=== PATIENT | female | born 1960 | race Two or more races ===

== ENCOUNTER 2019-10-14 18:57 | Emergency (ER) | payer MEDICAID ==
[~2019-10-14] VITALS: Ht 162.6 cm; Wt 90.7 kg
--- NOTE | 2019-10-14 19:17 | NUR ---
Patient arrive at the ER with chief complaint of flank pain left side x4 months and cough x1 yr. Patient AOX4. No cardiovascular concern. No /GI concern.
--- NOTE | 2019-10-14 19:21 | NUR ---
Dr. Mcleod on bedside for MSE.
[2019-10-14 19:50] LABS: *BILIRUBIN,URIN NEGATIVE (NEGATIVE); *BLOOD, URINE NEGATIVE (NEGATIVE); *CLARITY,URINE SLIGHTLY CLOUDY (CLEAR); *COLOR,URINE LIGHT YELLOW (YELLOW); *KETONES,URINE NEGATIVE (NEGATIVE); *UROBILINOGEN,URINE 0.2 E.U./dl (NORMAL); LEUKOCYTE ESTERASE ,URINE 1+ (NEGATIVE); NITRITE, URINE NEGATIVE (NEGATIVE); UGLUCOSE NEGATIVE (NEGATIVE)
[2019-10-14 19:51] LABS: BASOPHILS % (AUTO) 0.5 % (0.0-2.0); EOSINOPHILS # (AUTO) 0.1 K/uL (0.0-0.7); EOSINOPHILS % (AUTO) 1.7 % (0.0-7.0); HEMATOCRIT 39.1 % (31.2-41.9); HEMOGLOBIN 13.4 g/dL (10.9-14.3); LYMPHOCYTES # (AUTO) 1.9 K/uL (20.0-40.0); LYMPHOCYTES % (AUTO) 26.6 % (20.5-51.5); MEAN CORPUSCULAR HGB CONC 34 g/dL (32.3-35.6); MEAN CORPUSCULAR VOLUME 90.9 fL (75.5-95.3); MONOCYTES # (AUTO) 0.5 K/uL (2.0-10.0); MONOCYTES % (AUTO) 7.3 % (0.0-11.0); NEUTROPHILS # (AUTO) 4.5 K/uL (1.8-8.9); NEUTROPHILS % (AUTO) 63.9 % (38.5-71.5); PLATELET COUNT (AUTO) 221 K/uL (179-408)
[2019-10-14 20:03] LABS: CREATININE 0.8 mg/dL (0.6-1.3); POTASSIUM 3.9 mmol/L (3.5-5.1)
[2019-10-14 20:08] LABS: BILIRUBIN,DIRECT 0.1 mg/dL (0.0-0.2); BILIRUBIN,TOTAL 0.4 mg/dL (0.2-1.0); TOTAL PROTEIN, SERUM 8.9 g/dL (6.4-8.2)
[2019-10-14 20:12] LABS: BACTERIA,URINE MODERATE /HPF (NONE SEEN); SQUAMOUS EPITHELIAL CELL,UR MANY /HPF (NONE SEEN); WBC,URINE 20-50 /HPF (0-3)
--- NOTE | 2019-10-14 20:45 | NUR ---
Dr. Mcleod at bedside.
--- NOTE | 2019-10-14 21:10 | NUR ---
Patient discharged to home in stable conditon. Written and verbal after care instructions given. Patient verbalizes understanding of instructions. Pt ambulated out of the ER with steady gait. All belongings with pt.
[2019-10-14 21:19] VITALS: BP 135/80
== END 2019-10-14 21:10 | disposition home or self-care (01) ==
LOC: ER 19:02
DX: N20.0 Calculus of kidney (principal); R05 Cough; I25.2 Old myocardial infarction; E11.9 Type 2 diabetes mellitus without complications; Z86.73 Personal history of transient ischemic attack (TIA), and cerebral infarction without residual deficits
CPT/HCPCS: 36415; 71046; 83690; 85025; 85730; 87077; 87086; A4663

== ENCOUNTER 2019-12-08 20:16 | Emergency (ER) | payer MEDICAID ==
[~2019-12-08] VITALS: Ht 162.6 cm; Wt 93.0 kg
[2019-12-08 21:30] LABS: BASOPHILS % (AUTO) 0.7 % (0.0-2.0); EOSINOPHILS # (AUTO) 0.2 K/uL (0.0-0.7); EOSINOPHILS % (AUTO) 2.6 % (0.0-7.0); HEMATOCRIT 35.4 % (31.2-41.9); HEMOGLOBIN 12.3 g/dL (10.9-14.3); LYMPHOCYTES # (AUTO) 1.7 K/uL (20.0-40.0); MEAN CORPUSCULAR HEMOGLOBIN 30.5 uug (24.7-32.8); MEAN CORPUSCULAR HGB CONC 35 g/dL (32.3-35.6); MEAN CORPUSCULAR VOLUME 87.5 fL (75.5-95.3); MONOCYTES # (AUTO) 0.5 K/uL (2.0-10.0); MONOCYTES % (AUTO) 7.6 % (0.0-11.0); NEUTROPHILS # (AUTO) 4.4 K/uL (1.8-8.9); NEUTROPHILS % (AUTO) 64.1 % (38.5-71.5); PLATELET COUNT (AUTO) 209 K/uL (179-408); RED BLOOD CELL COUNT(AUTO) 4.04 MIL/uL (3.63-4.92); WHITE BLOOD COUNT (AUTO) 6.8 K/uL (3.8-11.8)
[2019-12-08 21:34] LABS: CREATININE 0.9 mg/dL (0.6-1.3); POTASSIUM 4.2 mmol/L (3.5-5.1)
--- NOTE | 2019-12-08 21:53 | NUR ---
ER MD at bedside for patient evaluation. Patient in bed, no acute distress noted. Flu swab complete and sent to lab.
[2019-12-08] MEDS ORDERED: OSELTAMIVIR PHOSPHATE 75 MG CAPSULE ONE (21:57)
[2019-12-08] MEDS ORDERED: OSELTAMIVIR PHOSPHATE 75 MG CAPSULE PO ONE (22:00)
[2019-12-08 22:52] VITALS: BP 121/65
--- NOTE | 2019-12-08 22:52 | NUR ---
Patient discharged to home in stable conditon. Written and verbal after care instructions given. Patient verbalizes understanding of instructions. Ambulated from ER with stable gait. All belongings with patient. VSS
== END 2019-12-08 22:54 | disposition home or self-care (01) ==
LOC: ER 20:16
DX: B34.9 Viral infection, unspecified (principal); E11.65 Type 2 diabetes mellitus with hyperglycemia; I25.2 Old myocardial infarction
CPT/HCPCS: 36415; 71045; 85025; 87400; A4663

== ENCOUNTER 2022-04-10 18:00 | Emergency (ER) | payer BC, MEDICAID ==
[~2022-04-10] VITALS: Ht 162.6 cm; Wt 90.7 kg
--- NOTE | 2022-04-10 18:19 | NUR ---
patient ambulated to bed 4A, presents with pain left lower back radiating to abd
--- NOTE | 2022-04-10 19:00 | NUR ---
patient's daughter at bedside
[2022-04-10 19:09] LABS: HEMATOCRIT 32.7 % (31.2-41.9); MEAN CORPUSCULAR HEMOGLOBIN 29.3 uug (24.7-32.8); MEAN CORPUSCULAR VOLUME 85.1 fL (75.5-95.3); PLATELET COUNT (AUTO) 210 K/uL (179-408)
[2022-04-10 19:22] LABS: CREATININE 0.8 mg/dL (0.6-1.3); POTASSIUM 4.3 mmol/L (3.5-5.1)
[2022-04-10 19:28] LABS: BILIRUBIN,DIRECT 0.1 mg/dL (0.0-0.2); BILIRUBIN,TOTAL 0.3 mg/dL (0.2-1.0); TOTAL PROTEIN, SERUM 8.2 g/dL (6.4-8.2)
[2022-04-10] MEDS ORDERED: MORPHINE SULFATE 4 MG/1 ML DISP.SYRIN IM ONE (19:30)
[2022-04-10] MEDS ORDERED: ONDANSETRON ODT 4 MG TAB.RAPDIS SL ONE (19:30)
[2022-04-10] MEDS ORDERED: MORPHINE SULFATE 4 MG/1 ML DISP.SYRIN ONE (19:34)
[2022-04-10] MEDS ORDERED: ONDANSETRON ODT 4 MG TAB.RAPDIS ONE (19:34)
[2022-04-10 20:25] LABS: *BILIRUBIN,URIN NEGATIVE (NEGATIVE); *BLOOD, URINE NEGATIVE (NEGATIVE); *CLARITY,URINE CLEAR (CLEAR); *COLOR,URINE YELLOW (YELLOW); *KETONES,URINE NEGATIVE (NEGATIVE); *UROBILINOGEN,URINE 0.2 E.U./dl (NORMAL); LEUKOCYTE ESTERASE ,URINE NEGATIVE (NEGATIVE); NITRITE, URINE NEGATIVE (NEGATIVE); UGLUCOSE NEGATIVE (NEGATIVE)
[2022-04-10] MEDS ORDERED: HYDR-4209 PO (20:54)
--- NOTE | 2022-04-10 21:02 | NUR ---
Patient discharged to home in stable condition. Written and verbal after care instructions given. Patient verbalizes understanding of instructions. Stressed follow up or return to ER for worsening s/s. Patient is A/Ox4, not in distress. patient is accompanied by her daughter
[2022-04-10 21:03] VITALS: BP 128/69
== END 2022-04-10 21:02 | disposition home or self-care (01) ==
LOC: ER 18:06
DX: R10.12 Left upper quadrant pain (principal); K76.0 Fatty (change of) liver, not elsewhere classified; E78.5 Hyperlipidemia, unspecified; Z85.89 Personal history of malignant neoplasm of other organs and systems; I25.2 Old myocardial infarction; I10 Essential (primary) hypertension; E11.9 Type 2 diabetes mellitus without complications; Z86.718 Personal history of other venous thrombosis and embolism
CPT/HCPCS: 36415; 74176; 80048; 80076; 81003; 83690; 84484; 85025; 93005; 96372; 99285; J2270; A4663; Q0162

== ENCOUNTER 2024-08-14 15:44 | Emergency (ER) | payer MEDICARE, OTHER ==
[~2024-08-14] VITALS: Ht 154.9 cm; Wt 71.7 kg
[~2024-08-14 15:44] MED LIST: HYDR-4209 PO
[2024-08-14 16:00] VITALS: O2SAT 97
[2024-08-14] MEDS ORDERED: diphenhydrAMINE 50 MG/1 ML VIAL ONE (16:31)
[2024-08-14] MEDS ORDERED: HYDROMORPHONE 1 MG/1 ML DISP.SYRIN ONE (16:32)
[2024-08-14] MEDS: HYDROMORPHONE 1 MG/1 ML DISP.SYRIN IM ONE (16:47)
[2024-08-14] MEDS: diphenhydrAMINE 50 MG/1 ML VIAL IM ONE (16:47)
[2024-08-14 17:11] LABS: BASOPHILS % (AUTO) 0.4 % (0.0-2.0); EOSINOPHILS # (AUTO) 0.2 K/uL (0.0-0.7); EOSINOPHILS % (AUTO) 3.4 % (0.0-7.0); HEMATOCRIT 35.6 % (31.2-41.9); HEMOGLOBIN 12.3 g/dL (10.9-14.3); LYMPHOCYTES # (AUTO) 1.1 K/uL (0.8-4.8); LYMPHOCYTES % (AUTO) 20.2 % (20.5-51.5); MEAN CORPUSCULAR HEMOGLOBIN 31.5 uug (24.7-32.8); MEAN CORPUSCULAR HGB CONC 35 g/dL (32.3-35.6); MEAN CORPUSCULAR VOLUME 91.1 fL (75.5-95.3); MONOCYTES # (AUTO) 0.6 K/uL (0.1-1.30); MONOCYTES % (AUTO) 10.1 % (0.0-11.0); NEUTROPHILS # (AUTO) 3.7 K/uL (1.8-8.9); NEUTROPHILS % (AUTO) 65.9 % (38.5-71.5); PLATELET COUNT (AUTO) 198 K/uL (179-408); RED BLOOD CELL COUNT(AUTO) 3.91 MIL/uL (3.63-4.92); RED CELL DISTRIBUTION WIDTH 13.5 % (12.3-17.7); WHITE BLOOD COUNT (AUTO) 5.6 K/uL (3.8-11.8)
[2024-08-14 17:12] LABS: CALCIUM 9.7 mg/dL (8.5-10.1); CARBON DIOXIDE 27 mmol/L (21-32); CHLORIDE 101 mmol/L (98-107); CREATININE 0.8 mg/dL (0.6-1.3); GLUCOSE 150 mg/dL (74-106); POTASSIUM 4.2 mmol/L (3.5-5.1); SODIUM SERUM 139 mmol/L (136-145); UREA NITROGEN, BLOOD 10 mg/dL (7-18)
[2024-08-14 17:23] LABS: ALANINE AMINOTRANSFERASE 38 U/L (14-59); ALBUMIN 4.2 g/dL (3.4-5.0); ALKALINE PHOSPHATASE 55 U/L (50-136); ASPARTATE AMINOTRANSFERASE 27 U/L (15-37); BILIRUBIN,DIRECT 0.1 mg/dL (0.0-0.2); BILIRUBIN,TOTAL 0.6 mg/dL (0.2-1.0); NT-PRO BNP 45 pg/mL (0-125)
[2024-08-14] MEDS ORDERED: OXYC-128 PO (18:10)
[2024-08-14] MEDS ORDERED: CYCL5TAB PO (18:10)
[2024-08-14] MEDS ORDERED: IBUP-1957 PO (18:10)
== END 2024-08-14 18:20 | disposition home or self-care (01) ==
LOC: ER 15:45
DX: M54.42 Lumbago with sciatica, left side (principal); E11.9 Type 2 diabetes mellitus without complications; Z79.1 Long term (current) use of non-steroidal anti-inflammatories (NSAID); Z79.891 Long term (current) use of opiate analgesic; Z79.899 Other long term (current) drug therapy; Z98.890 Other specified postprocedural states
CPT/HCPCS: 99285; 72131; 80076; 80048; 83880; 85025; 85379; 85651; 85730; 84484; 36415; 96372 ×2; J1200; J1170; A4606; A4663

== ENCOUNTER 2024-09-07 18:47 | Emergency (ER) | payer MEDICARE, OTHER ==
[~2024-09-07] VITALS: Ht 160 cm; Wt 72.6 kg
[~2024-09-07 18:47] MED LIST changes: +CYCL5TAB PO; +IBUP-1957 PO; +OXYC-128 PO
[2024-09-07] MEDS ORDERED: LISI20TA30 PO (19:03)
[2024-09-07] MEDS ORDERED: PANT40TA49 PO (19:03)
[2024-09-07] MEDS ORDERED: METO50TA16 PO (19:03)
[2024-09-07] MEDS ORDERED: LEVO88TA5 PO (19:03)
[2024-09-07] MEDS ORDERED: FERR325T24 PO (19:03)
[2024-09-07] MEDS ORDERED: SITA1TAB6 PO (19:03)
[2024-09-07] MEDS ORDERED: ATOR40TA (19:03)
[2024-09-07] MEDS ORDERED: MONT10TA33 PO (19:03)
[2024-09-07] MEDS ORDERED: ALLO300T2 PO (19:03)
[2024-09-07] MEDS ORDERED: GABA-532 PO (19:03)
[2024-09-07] MEDS ORDERED: MELO-107 PO (19:03)
[2024-09-07 19:14] LABS: BASOPHILS % (AUTO) 0.5 % (0.0-2.0); EOSINOPHILS # (AUTO) 0.1 K/uL (0.0-0.7); EOSINOPHILS % (AUTO) 1.4 % (0.0-7.0); HEMATOCRIT 34.5 % (31.2-41.9); HEMOGLOBIN 12.1 g/dL (10.9-14.3); LYMPHOCYTES # (AUTO) 1.7 K/uL (0.8-4.8); LYMPHOCYTES % (AUTO) 24.8 % (20.5-51.5); MEAN CORPUSCULAR HGB CONC 35 g/dL (32.3-35.6); MEAN CORPUSCULAR VOLUME 91.5 fL (75.5-95.3); MONOCYTES # (AUTO) 0.5 K/uL (0.1-1.30); MONOCYTES % (AUTO) 7.5 % (0.0-11.0); NEUTROPHILS # (AUTO) 4.5 K/uL (1.8-8.9); NEUTROPHILS % (AUTO) 65.8 % (38.5-71.5); PLATELET COUNT (AUTO) 200 K/uL (179-408); RED BLOOD CELL COUNT(AUTO) 3.77 MIL/uL (3.63-4.92); RED CELL DISTRIBUTION WIDTH 13.3 % (12.3-17.7); WHITE BLOOD COUNT (AUTO) 6.8 K/uL (3.8-11.8)
[2024-09-07 19:15] LABS: DIFFERENTIAL COMMENT 1
[2024-09-07 19:24] LABS: CALCIUM 9.5 mg/dL (8.5-10.1); CARBON DIOXIDE 25 mmol/L (21-32); CHLORIDE 97 mmol/L (98-107); CREATININE 0.9 mg/dL (0.6-1.3); GLUCOSE 176 mg/dL (74-106); POTASSIUM 4.4 mmol/L (3.5-5.1); SODIUM SERUM 132 mmol/L (136-145); UREA NITROGEN, BLOOD 14 mg/dL (7-18)
[2024-09-07 19:37] LABS: ALANINE AMINOTRANSFERASE 36 U/L (14-59); ALBUMIN 4.4 g/dL (3.4-5.0); ALKALINE PHOSPHATASE 64 U/L (50-136); ASPARTATE AMINOTRANSFERASE 24 U/L (15-37); BILIRUBIN,TOTAL 0.5 mg/dL (0.2-1.0); LIPASE 91 U/L (16-77); NT-PRO BNP 84 pg/mL (0-125); TOTAL PROTEIN, SERUM 8.3 g/dL (6.4-8.2)
[2024-09-07 19:41] LABS: ACETONE, SERUM NEGATIVE (NEGATIVE)
[2024-09-07 20:38] LABS: *BILIRUBIN,URIN NEGATIVE (NEGATIVE); *BLOOD, URINE NEGATIVE (NEGATIVE); *CLARITY,URINE CLEAR (CLEAR); *COLOR,URINE YELLOW (YELLOW); *KETONES,URINE NEGATIVE (NEGATIVE); *PROTEIN,URINE NEGATIVE (NEGATIVE); *UROBILINOGEN,URINE 0.2 E.U./dl (NORMAL); LEUKOCYTE ESTERASE ,URINE 1+ (NEGATIVE); NITRITE, URINE NEGATIVE (NEGATIVE); UGLUCOSE NEGATIVE (NEGATIVE)
[2024-09-07 20:57] LABS: RBC,URINE 0-3 /HPF (0-3); WBC,URINE 0-3 /HPF (0-3)
[2024-09-07 21:00] VITALS: BP 133/80; TEMP 98; O2SAT 98
== END 2024-09-07 21:00 | disposition home or self-care (01) ==
LOC: ER 18:48
DX: R51.9 Headache, unspecified (principal); E11.9 Type 2 diabetes mellitus without complications; I11.9 Hypertensive heart disease without heart failure; I25.2 Old myocardial infarction; Z79.1 Long term (current) use of non-steroidal anti-inflammatories (NSAID); Z79.84 Long term (current) use of oral hypoglycemic drugs; Z79.890 Hormone replacement therapy; Z86.718 Personal history of other venous thrombosis and embolism; Z79.899 Other long term (current) drug therapy
CPT/HCPCS: 36415; 70450; 71045; 83690; 84484; 85025; A4606; A4663

== ENCOUNTER 2024-09-22 22:57 | Inpatient (IN) | payer MEDICAID, MEDICARE ==
[~2024-09-22] VITALS: Ht 160 cm; Wt 72.6 kg
[~2024-09-22 22:57] MED LIST changes: +ALLO300T2 PO; +ATOR40TA; -CYCL5TAB PO; +FERR325T24 PO; +GABA-532 PO; -HYDR-4209 PO; -IBUP-1957 PO; +LEVO88TA5 PO; +LISI20TA30 PO; +MELO-107 PO; +METO50TA16 PO; +MONT10TA33 PO; -OXYC-128 PO; +PANT40TA49 PO; +SITA1TAB6 PO
[2024-09-22] MEDS ORDERED: ACETAMINOPHEN 500 MG TABLET ONE (23:35)
[2024-09-22] MEDS ORDERED: ONDANSETRON 4 MG/2 ML VIAL ONE (23:36)
[2024-09-22] MEDS: ONDANSETRON 4 MG/2 ML VIAL IV ONE (23:57)
[2024-09-22] MEDS: IV NORMAL SALINE 500 ML BAG IV ONE (23:57)
[2024-09-22] MEDS: ACETAMINOPHEN 500 MG TABLET PO ONE (23:57)
[2024-09-22] MEDS ORDERED: LORAZEPAM 2 MG/1 ML VIAL ONE (23:59)
[2024-09-23] MEDS: LORAZEPAM 2 MG/1 ML VIAL IV ONE (00:03)
[2024-09-23 00:11] LABS: CARBON DIOXIDE 27 mmol/L (21-32); CHLORIDE 99 mmol/L (98-107); CREATININE 1.2 mg/dL (0.6-1.3); GLUCOSE 151 mg/dL (74-106); POTASSIUM 4.5 mmol/L (3.5-5.1); SODIUM SERUM 137 mmol/L (136-145); UREA NITROGEN, BLOOD 18 mg/dL (7-18)
[2024-09-23 00:15] LABS: THYROID STIMULATING HORMONE 0.253 mIU/mL (0.358-3.740)
[2024-09-23 00:16] LABS: ALBUMIN 4.3 g/dL (3.4-5.0); BILIRUBIN,DIRECT 0.1 mg/dL (0.0-0.2); BILIRUBIN,TOTAL 0.5 mg/dL (0.2-1.0); MAGNESIUM 1.9 mg/dL (1.8-2.4); TOTAL PROTEIN, SERUM 8.2 g/dL (6.4-8.2)
[2024-09-23 00:33] LABS: BASOPHILS % (AUTO) 0.3 % (0.0-2.0); EOSINOPHILS # (AUTO) 0.1 K/uL (0.0-0.7); EOSINOPHILS % (AUTO) 1.6 % (0.0-7.0); HEMATOCRIT 33.1 % (31.2-41.9); HEMOGLOBIN 11.7 g/dL (10.9-14.3); LYMPHOCYTES # (AUTO) 1.4 K/uL (0.8-4.8); LYMPHOCYTES % (AUTO) 19.5 % (20.5-51.5); MEAN CORPUSCULAR HGB CONC 35 g/dL (32.3-35.6); MEAN CORPUSCULAR VOLUME 90.3 fL (75.5-95.3); MONOCYTES # (AUTO) 0.6 K/uL (0.1-1.30); MONOCYTES % (AUTO) 8.9 % (0.0-11.0); NEUTROPHILS # (AUTO) 5.1 K/uL (1.8-8.9); NEUTROPHILS % (AUTO) 69.7 % (38.5-71.5); PLATELET COUNT (AUTO) 206 K/uL (179-408); RED BLOOD CELL COUNT(AUTO) 3.67 MIL/uL (3.63-4.92); RED CELL DISTRIBUTION WIDTH 13.3 % (12.3-17.7); WHITE BLOOD COUNT (AUTO) 7.3 K/uL (3.8-11.8)
[2024-09-23] MEDS ORDERED: ONDA4TAB11 PO (01:26)
[2024-09-23] MEDS ORDERED: CALC500T52 PO (01:26)
[2024-09-23] MEDS ORDERED: ALPR0.5T8 PO (01:26)
[2024-09-23] MEDS ORDERED: GLYB5TAB7 PO (01:26)
[2024-09-23] MEDS ORDERED: FAMO20TA8 PO (01:26)
[2024-09-23] MEDS ORDERED: BACL20TA PO (01:26)
[2024-09-23] MEDS ORDERED: HYDR200T81 PO (01:26)
[2024-09-23] MEDS ORDERED: ASPI81TA31 PO (01:26)
[2024-09-23] MEDS ORDERED: GEMF600T90 PO (01:26)
[2024-09-23] MEDS ORDERED: LIPA1CAP15 PO (01:26)
[2024-09-23] MEDS ORDERED: ATOR40TA PO (01:27)
[2024-09-23] MEDS: RIVAROXABAN 15 MG TABLET PO STA (02:20)
[2024-09-23] MEDS ORDERED: MAGNESIUM HYDROXIDE 30 ML LIQUID UDC PO PRN (02:45)
[2024-09-23] MEDS ORDERED: REMEDY ESSENTIAL ZINC PASTE 113 GM TP PRN (02:45)
[2024-09-23] MEDS ORDERED: ONDANSETRON 4 MG/2 ML VIAL IV PRN (02:45)
[2024-09-23] MEDS ORDERED: DEXTROSE 50% 50 ML DISP.SYRIN IV PRN (02:45)
[2024-09-23] MEDS ORDERED: BACLOFEN 20 MG TABLET PO PRN (02:45)
[2024-09-23] MEDS ORDERED: ALPRAZOLAM 0.5 MG TABLET PO PRN (02:45)
[2024-09-23 03:11] LABS: *BILIRUBIN,URIN NEGATIVE (NEGATIVE); *BLOOD, URINE NEGATIVE (NEGATIVE); *CLARITY,URINE CLEAR (CLEAR); *COLOR,URINE YELLOW (YELLOW); *KETONES,URINE NEGATIVE (NEGATIVE); *PROTEIN,URINE NEGATIVE (NEGATIVE); *UROBILINOGEN,URINE 0.2 E.U./dl (NORMAL); LEUKOCYTE ESTERASE ,URINE NEGATIVE (NEGATIVE); NITRITE, URINE NEGATIVE (NEGATIVE); PH,URINE 5.5 (5.0-8.0); UGLUCOSE NEGATIVE (NEGATIVE)
[2024-09-23 07:16] LABS: BASOPHILS % (AUTO) 0.4 % (0.0-2.0); EOSINOPHILS # (AUTO) 0.1 K/uL (0.0-0.7); EOSINOPHILS % (AUTO) 2.4 % (0.0-7.0); HEMATOCRIT 31.5 % (31.2-41.9); HEMOGLOBIN 11.5 g/dL (10.9-14.3); LYMPHOCYTES # (AUTO) 1.5 K/uL (0.8-4.8); LYMPHOCYTES % (AUTO) 25.6 % (20.5-51.5); MEAN CORPUSCULAR HGB CONC 36 g/dL (32.3-35.6); MEAN CORPUSCULAR VOLUME 90.6 fL (75.5-95.3); MONOCYTES # (AUTO) 0.5 K/uL (0.1-1.30); MONOCYTES % (AUTO) 8.9 % (0.0-11.0); NEUTROPHILS # (AUTO) 3.6 K/uL (1.8-8.9); NEUTROPHILS % (AUTO) 62.7 % (38.5-71.5); PLATELET COUNT (AUTO) 196 K/uL (179-408); RED BLOOD CELL COUNT(AUTO) 3.48 MIL/uL (3.63-4.92); RED CELL DISTRIBUTION WIDTH 13.1 % (12.3-17.7); WHITE BLOOD COUNT (AUTO) 5.7 K/uL (3.8-11.8)
[2024-09-23 07:25] LABS: CALCIUM 9.8 mg/dL (8.5-10.1); CREATININE 0.9 mg/dL (0.6-1.3); POTASSIUM 4.2 mmol/L (3.5-5.1)
[2024-09-23 07:56] LABS: MAGNESIUM 1.9 mg/dL (1.8-2.4); PHOSPHOROUS 4.7 mg/dL (2.5-4.9)
[2024-09-23 07:58] LABS: DIFFERENTIAL COMMENT 1
[2024-09-23] MEDS ORDERED: IV NORMAL SALINE 250 ML IV ONE (09:32)
[2024-09-23] MEDS ORDERED: SWABABLE VALVE TRANSFER SET EA MC ONE (09:32)
[2024-09-23] MEDS ORDERED: IOHEXOL 350 100 ML INFUS..BTL ONE (09:32)
[2024-09-23 09:48] LABS: THYROID STIMULATING HORMONE 0.255 mIU/mL (0.358-3.740)
[2024-09-23] MEDS: LEVOTHYROXINE SODIUM 88 MCG TABLET PO SCH (10:09)
[2024-09-23] MEDS: PANTOPRAZOLE SODIUM 40 MG VIAL IV SCH (10:09)
[2024-09-23] MEDS: GABAPENTIN 100 MG CAPSULE PO SCH (10:09)
[2024-09-23] MEDS: METOPROLOL TARTRATE 50 MG TABLET PO SCH (10:15)
[2024-09-23] MEDS: LISINOPRIL 20 MG TABLET PO SCH (10:16)
[2024-09-23] MEDS: CALCIUM CARBONATE 500 MG TABLET PO SCH (10:18)
[2024-09-23] MEDS: BLOOD SUGAR DIAGNOSTIC 1 EACH STRIP VI SCH (10:24)
[2024-09-23] MEDS: HYDROXYCHLOROQUINE SULFATE 200 MG TABLET PO SCH (10:28)
[2024-09-23] MEDS ORDERED: GEMFIBROZIL 600 MG TABLET PO SCH (11:00)
[2024-09-23] MEDS: INSULIN REGULAR, HUMAN 1000 UNIT/10 ML VIAL SQ PRN (11:31)
[2024-09-23] MEDS: FERROUS SULFATE 325 MG TABEC PO SCH (11:31)
[2024-09-23] MEDS: [UNRECOGNIZED DRUG - REMARK] PO SCH (12:50)
[2024-09-23 15:22] VITALS: BP 135/67; TEMP 97.7; O2SAT 95
[2024-09-23] MEDS: GEMFIBROZIL 600 MG TABLET PO SCH (17:09)
[2024-09-23] MEDS: MONTELUKAST SODIUM 10 MG TABLET PO SCH (18:00)
[2024-09-23] MEDS: ACETAMINOPHEN 325 MG TABLET PO PRN (20:43)
[2024-09-23 22:00] VITALS: BP 110/65; TEMP 98.2
[2024-09-24] MEDS: LEVOTHYROXINE SODIUM 75 MCG TABLET PO SCH (06:13)
[2024-09-24 06:18] VITALS: BP 134/66; TEMP 97.8
[2024-09-24 06:51] LABS: BASOPHILS % (AUTO) 0.3 % (0.0-2.0); EOSINOPHILS # (AUTO) 0.1 K/uL (0.0-0.7); EOSINOPHILS % (AUTO) 2.7 % (0.0-7.0); HEMATOCRIT 31.2 % (31.2-41.9); HEMOGLOBIN 11.1 g/dL (10.9-14.3); LYMPHOCYTES # (AUTO) 1.4 K/uL (0.8-4.8); LYMPHOCYTES % (AUTO) 26.8 % (20.5-51.5); MEAN CORPUSCULAR HEMOGLOBIN 32.8 uug (24.7-32.8); MEAN CORPUSCULAR HGB CONC 36 g/dL (32.3-35.6); MEAN CORPUSCULAR VOLUME 92.2 fL (75.5-95.3); MONOCYTES # (AUTO) 0.5 K/uL (0.1-1.30); MONOCYTES % (AUTO) 9.7 % (0.0-11.0); NEUTROPHILS # (AUTO) 3.1 K/uL (1.8-8.9); NEUTROPHILS % (AUTO) 60.5 % (38.5-71.5); PLATELET COUNT (AUTO) 198 K/uL (179-408); RED BLOOD CELL COUNT(AUTO) 3.38 MIL/uL (3.63-4.92); RED CELL DISTRIBUTION WIDTH 13.3 % (12.3-17.7); WHITE BLOOD COUNT (AUTO) 5.1 K/uL (3.8-11.8)
[2024-09-24 07:04] LABS: CALCIUM 9.9 mg/dL (8.5-10.1); CREATININE 0.9 mg/dL (0.6-1.3); POTASSIUM 4.5 mmol/L (3.5-5.1)
[2024-09-24 07:17] LABS: DIFFERENTIAL COMMENT 1
[2024-09-24 11:30] VITALS: BP 116/52; TEMP 97.6; O2SAT 96
[2024-09-24] MEDS ORDERED: LEVO75TA7 PO (12:10)
[2024-09-25] MEDS ORDERED: PANTOPRAZOLE SODIUM 40 MG TABLET.DR PO SCH (07:00)
== END 2024-09-24 13:40 | disposition home health service (06) | DRG 723 ==
LOC: ER 22:58 → TELE3 09-23 08:16 → MEDSURG3 09-24 10:00
PROVIDERS: ATTEND Internal Medicine
DX: B34.9 Viral infection, unspecified (principal); N17.9 Acute kidney failure, unspecified; K85.90 Acute pancreatitis without necrosis or infection, unspecified; D68.59 Other primary thrombophilia; I11.9 Hypertensive heart disease without heart failure; I25.10 Atherosclerotic heart disease of native coronary artery without angina pectoris; I25.2 Old myocardial infarction; E11.9 Type 2 diabetes mellitus without complications; E66.9 Obesity, unspecified; E78.5 Hyperlipidemia, unspecified; M15.9 Polyosteoarthritis, unspecified; E89.0 Postprocedural hypothyroidism; Z68.28 Body mass index [BMI] 28.0-28.9, adult; Z86.711 Personal history of pulmonary embolism; Z96.651 Presence of right artificial knee joint; Z86.718 Personal history of other venous thrombosis and embolism; Z79.84 Long term (current) use of oral hypoglycemic drugs; Z79.890 Hormone replacement therapy; Z79.899 Other long term (current) drug therapy; Z85.819 Personal history of malignant neoplasm of unspecified site of lip, oral cavity, and pharynx; Z74.09 Other reduced mobility; G89.29 Other chronic pain; R39.15 Urgency of urination; R42 Dizziness and giddiness
CPT/HCPCS: 36415; 70450; 71045; 71275; 78580; 83690; 83735; 84100; 84443; 84484; 85025; 85730; 86140; 93307; A4663; A9150; A9540; G0378; J1815; J2060; J2405; J2470; J7040; Q9967